=== PATIENT | female | born 1970 | race American Indian/Alaskan Native ===

== ENCOUNTER 2019-01-11 20:08 | Emergency (ER) | payer OTHER, MEDICAID ==
[~2019-01-11] VITALS: Ht 160 cm; Wt 68.0 kg
[~2019-01-11 20:08] MED LIST: ALBUAER3 IN; BECL80AE9 IN; CITA20TA3 PO; CLONPOW23 PO; CYCL5TAB PO; DIPH2.5T47 PO; ESOM2.5G PO; ESTR1TAB3 PO; FERR28TA2 PO; FLUT50SP13; FLUT50SP13 INH; FUR40T PO; LAM100T OR; LEVO200I5 PO; MEMA10TA PO; NAMENDA; POTA10TA51 PO; PRO125RS RE; QUET25TA37 PO
[2019-01-11 23:00] VITALS: BP 100/63
[2019-01-12] MEDS ORDERED: SODIUM CHLORIDE 0.9% 1,000 ML IV ONE (00:15)
[2019-01-12] MEDS ORDERED: ONDANSETRON HCL 4 MG/2 ML VIAL IV ONE (00:30)
[2019-01-12 00:37] LABS: Urine Bacteria FEW /hpf (None Seen); Urine Blood Negative /uL (Negative); Urine Mucus FEW (None Seen); Urine Specific Gravity 1.014 (1.001-1.035); Urine WBC 12 /hpf (0 - 5)
== END 2019-01-12 00:33 | disposition left against medical advice (07) ==
LOC: ER 20:11
DX: R10.9 Unspecified abdominal pain (principal); Z53.21 Procedure and treatment not carried out due to patient leaving prior to being seen by health care provider
CPT/HCPCS: 74176; 81001